=== PATIENT | female | born 1950 | race Caucasian/White ===

== ENCOUNTER → 2017-03-24 | Outpatient (CLI) | payer OTHER ==
[~2017-03-24] MED LIST: ALEN70TA3 PO; CLTP PO; DOCU100C31; LISI20TA55 PO; MULT-513 PO; POTA10CA28 PO; PREMARIN VAG; SIME1CHW17; TAMO20TA9 PO; loratadine PO
[2017-03-24 17:53] LABS: BLOOD UREA NITROGEN 8 mg/dl (7-18); BUN/CREATININE RATIO 9.3 (10-20); CARBON DIOXIDE 30 mmol/L (21-32); CHLORIDE 103 mmol/L (98-107); CREATININE 0.85 mg/dl (0.60-1.20); GLUCOSE 93 mg/dl (70-99); POTASSIUM 4.2 mmol/L (3.5-5.1); SODIUM 139 mmol/L (136-145)
[2017-03-24 18:12] LABS: CALCIUM 9.9 mg/dl (8.5-10.1)
== END | disposition home or self-care (01) ==
LOC: C.LABPVFM 11:41
PROVIDERS: ATTEND Family Medicine
DX: Z00.00 Encounter for general adult medical examination without abnormal findings (principal); I10 Essential (primary) hypertension

== ENCOUNTER → 2017-06-09 | Outpatient (CLI) | payer OTHER ==
[2016-06-09 13:34] VITALS: BP 123/67; PULSE 91
[~2017-06-09] MED LIST changes: +TAMO20TA47 PO; -TAMO20TA9 PO
[2017-06-09 09:04] VITALS: BP 153/95; PULSE 77; TEMP 36.2; O2SAT 99
--- NOTE | 2017-06-09 10:12 | Radiation Oncology Follow-Up ---
Radiation Oncology Follow-Up Date of Visit Jun 09, 2017. 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 She has noted no masses or tenderness and no change of the axilla. She is up-to-date on mammography. She continues on tamoxifen. She denies any problems with hot flashes. She had a recheck mammogram 08/16/2016. There is no mammographic evidence of malignancy. A one-year screening mammogram is recommended. She is described intermittent episodes of nausea and vomiting. These are sudden in onset. She'll have nausea vomiting and abdominal pain. This will resolve and then she is fine for a extended period of time. The last time this occurred she was weak afterward. She did not drink or eat food for an extended period of time. She felt lightheaded afterward. She has a known history of an incisional hernia/umbilical hernia that has been present for a long period of time. She did not have any fever or chills with these episodes. She did not describe any episodes of associated diarrhea. Allergies Coded Allergies: No Known Allergies (Verified , 07/26/13) Home Medications Scheduled Alendronate/Cholecalciferol (Fosamax+D 70MG/5600 Iu), 1 TABLET PO WK Calcium/Vitamin D (Caltrate 600 Plus *), 2 TAB PO DAILY Lisinopril/Hctz (Prinzide 20-25MG), 0.5 TAB PO DAILY Multivitamins/Minerals (Mvi With Minerals), 1 TAB PO DAILY Potassium Chloride (Micro-K Ext Rel), 10 MEQ PO DAILY Tamoxifen (Nolvadex), 20 MG PO DAILY [premarin vag cream], WK Scheduled PRN Docusate Sodium (Docusate Sodium) Simethicone (Gas Relief) [loratadine], 10 MG PO DAILY PRN Review of Systems Gastrointestinal: Symptoms: WNL, Vomiting GI Comments: Vomits about once a month when doing yardwork/increased activity Oral: Symptoms: No Problems Respiratory: Symptoms: WNL Urinary: Symptoms: WNL Skin: Symptoms: No Problems Other Skin Symptoms: " i have a scab and sore on my big toe on left foot " Breast: Right Upper Arm Measurement: 28.9 Right Mid Arm Measurement: 23.4 Right Wrist Measurement: 15.4 Left Upper Arm Measurement: 27.3 Left Mid Arm Measurement: 22.7 Left Wrist Measurement: 15.0 Arm Dominence: Right Patient Cosmetic Evaluation: Good Staff Cosmetic Evalaluation: Good Physical Exam Vital Signs Date Time Temp Pulse Resp B/P (MAP) Pulse Ox O2 Delivery O2 Flow Rate FiO2 06/09/17 09:04 36.2 77 16 153/95 99 Pain: Side: Bilateral Patient Pain Scale: 0 - 10 Initial Pain Intensity: 0.0 Fatigue: None General Appearance: no apparent distress Eyes: normal inspection, EOMI ENT: normal ENT inspection, hearing grossly normal Neck: no adenopathy, thyroid normal Respiratory/Chest: lungs clear, no respiratory distress, no accessory muscle use Breast: Breast examination reveals well-healed incisions of the right breast. There are no masses or tenderness and no axillary adenopathy. She has no skin retractions or nipple changes. Using the Bessemer score cosmesis she has a excellent outcome. The left breast showed no masses or tenderness no axillary adenopathy. Cardiovascular: regular rate, rhythm, no gallop, no murmur Abdomen: non tender, soft, + pertinent finding (she has a long well-healed midline incision. There is a palpable hernia centrally. This is in the area of the umbilicus. This is nontender.) Extremities: no pedal edema Neurologic/Psychiatric: no motor/sensory deficits, alert, normal mood/affect Skin: warm/dry Laboratory Studies Test 03/24/17 11:50 Sodium Level 139 mmol/L (136-145) Potassium Level 4.2 mmol/L (3.5-5.1) Chloride Level 103 mmol/L (98-107) Carbon Dioxide Level 30 mmol/L (21-32) Anion Gap 6.0 mmol/L (3-11) Blood Urea Nitrogen 8 mg/dl (7-18) Creatinine 0.85 mg/dl (0.60-1.20) Estimated GFR () 82.8 Estimated GFR (Non- 71.4 BUN/Creatinine Ratio 9.3 (10-20) Random Glucose 93 mg/dl (70-99) Calcium Level 9.9 mg/dl (8.5-10.1) Hepatitis C Antibody NEG (NEG) Additional Studies Patient: POORNIMA JEROME [facility] Rec: [id number] Address1: [address] [place] [address] Address2: [place] [address] Acct ID: [id number] Date: 1950 Sex: F Ref Phy: Att Phy: Joshua Edward M.D. Tanya Phy: Bong Arredondo M.D. Inter Phy: Leonie Kim MD [facility] Zip: [place] [address] SC: [id number] Report #: [id number] Road Oiler: STEW Diagnosis: ASYMPTOMATIC Service Date: 08/16/16 MNE: [id number] Ordering Dr: Joshua Edward M.D. CC: Joshua Edward M.D. CONF: DICTATED BY: Leonie Kim MD MAMMOGRAPHY REPORT BILATERAL DIGITAL SCREENING MAMMOGRAM 3D/2D WITH CAD: 08/16/2016 CLINICAL HISTORY: Asymptomatic. Personal history of breast cancer. Comparison is made to exams dated: 08/13/2015 mammogram, 06/05/2013 mammogram, mammogram, 08/12/2014 mammogram, 07/26/2013 specimen, and 06/14/2013 ultrasound biopsy - [facility]. FINDINGS: Breast tomosynthesis in addition to full field digital CC and MLO views were obtained. The tissue of both breasts is almost entirely fatty. Current study was also evaluated with a Computer Aided Detection (CAD) system. Linear scar markers overlie the right upper outer middle one third of the breast. There is expected underlying architectural distortion at the site of prior lumpectomy. There are stable intramammary lymph nodes in the left upper outer quadrant. No new suspicious mass, unexpected architectural distortion or new cluster of suspicious microcalcifications are seen bilaterally. IMPRESSION: ACR BI-RADS CATEGORY 2: BENIGN There is no mammographic evidence of malignancy. A 1 year screening mammogram is recommended. The patient will receive written notification of the results. Approximately 10% of breast cancers are not detected with mammography. A negative mammographic report should not delay biopsy if a clinically suggestive mass is present. Leonie Kim M.D. ay/:08/17/2016 21:07:43 Mannequin Maker: Vani PERALTA)(Carolee), [facility] letter sent: Normal 1/2 BI-RADS Code: ACR BI-RADS Category 2: Benign Dictated by: Leonie Kim MD Signed by: Leonie Kim MD Assessment & Plan Plan: Continue regular follow-up with Dr. Arredondo in medical oncology. She has a recheck mammogram scheduled for 08/17/2017. She'll be seeing him 08/16/2017. Continue follow-up with Dr. Main. She continues on the tamoxifen. We discussed the issue of the read current episodes of nausea and vomiting. These may likely be related to her hernia. I've asked her to review this with Dr. Main. The hernia may need to be repaired. There is concern that she is having intermittent strangulation. She is currently asymptomatic. We asked her to return to our office in 1 year. Total Time In Follow-Up I spent 25 minutes speaking to the patient performing examination. I spent 15 minutes reviewing information in completing this note. Copy To Bong Arredondo M.D.; Joshua Edward M.D. 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
== END | disposition home or self-care (01) ==
LOC: C.ONC 08:24
PROVIDERS: ATTEND Physician Assistant Medical
DX: Z08 Encounter for follow-up examination after completed treatment for malignant neoplasm (principal); Z92.3 Personal history of irradiation; Z85.3 Personal history of malignant neoplasm of breast

== ENCOUNTER → 2017-08-17 | Outpatient (CLI) | payer OTHER ==
--- NOTE | 2017-08-18 13:54 | MAMMOGRAPHY REPORT ---
BILATERAL DIGITAL SCREENING MAMMOGRAM TOMOSYNTHESIS WITH CAD: 08/17/2017 CLINICAL HISTORY: Asymptomatic. Personal history of breast cancer. TECHNIQUE: Breast tomosynthesis in addition to standard 2D mammography was performed. Current study was also evaluated with a Computer Aided Detection (CAD) system. COMPARISON: Comparison is made to exams dated: 08/16/2016 mammogram, 08/13/2015 mammogram, 02/14/2015 ma mmogram, 08/12/2014 mammogram, 02/07/2014 mammogram, and 06/07/2013 mammogram - [facility]ter. BREAST COMPOSITION: The tissue of both breasts is almost entirely fatty. FINDINGS: No suspicious masses, calcifications, or areas of architectural distortion are noted in ei ther breast. There has been no significant interval change compared to prior exams. There are stable post surgical changes in the right upper outer quadrant from prior lumpectomy. IMPRESSION: ACR BI-RADS CATEGORY 2: BENIGN There is no mammographic evidence of malignancy. A 1 year screening mammogram is recommended. The pa tient will receive written notification of the results. Approximately 10% of breast cancers are not detected with mammography. A negative mammographic report should not delay biopsy if a clinically suggestive mass is present. Sarah Yee M.D. /:08/17/2017 14:01:55 Retirement Manager: Rebekah PERALTA)(Carolee)(BD), [facility] letter sent: Normal 1/2 BI-RADS Code: ACR BI-RADS Category 2: Benign
== END | disposition home or self-care (01) ==
LOC: C.MAMM 10:24
PROVIDERS: ATTEND Family Medicine
DX: Z12.31 Encounter for screening mammogram for malignant neoplasm of breast (principal)

== ENCOUNTER → 2017-08-25 | Outpatient (CLI) | payer OTHER | END | disposition home or self-care (01) | LOC: C.MAMM 14:00 | PROVIDERS: ATTEND Internal Medicine Hematology | DX: M85.88 Other specified disorders of bone density and structure, other site (principal); M85.852 Other specified disorders of bone density and structure, left thigh; M85.851 Other specified disorders of bone density and structure, right thigh; Z78.0 Asymptomatic menopausal state ==

== ENCOUNTER → 2017-09-21 | Outpatient (CLI) | payer OTHER ==
[~2017-09-21] MED LIST changes: -TAMO20TA47 PO; +TAMO20TA9 PO
[2017-09-21 13:30] LABS: BLOOD UREA NITROGEN 15 mg/dl (7-18); BUN/CREATININE RATIO 17.9 (10-20); CARBON DIOXIDE 27 mmol/L (21-32); CHLORIDE 102 mmol/L (98-107); CREATININE 0.86 mg/dl (0.60-1.20); GLUCOSE 103 mg/dl (70-99); POTASSIUM 3.9 mmol/L (3.5-5.1); SODIUM 137 mmol/L (136-145)
== END | disposition home or self-care (01) ==
LOC: C.LABPVFM 10:03
PROVIDERS: ATTEND Family Medicine
DX: Z00.00 Encounter for general adult medical examination without abnormal findings (principal); I10 Essential (primary) hypertension

== ENCOUNTER → 2018-03-22 | Outpatient (CLI) | payer OTHER ==
[2018-03-22 13:01] LABS: ALBUMIN 3.8 gm/dl (3.4-5.0); ALT/SGPT 25 U/L (12-78); AST/SGOT 24 U/L (15-37); BLOOD UREA NITROGEN 15 mg/dl (7-18); CALCIUM 9.3 mg/dl (8.5-10.1); CARBON DIOXIDE 27 mmol/L (21-32); CHOLESTEROL 161 mg/dl (0-200); CREATININE 0.85 mg/dl (0.60-1.20); GLUCOSE 84 mg/dl (70-99); POTASSIUM 3.5 mmol/L (3.5-5.1); SODIUM 137 mmol/L (136-145)
[2018-03-22 13:04] LABS: ALKALINE PHOSPHATASE 41 U/L (45-117); LDL CHOLESTEROL CALCULATED 58 mg/dl; TOTAL PROTEIN 7.5 gm/dl (6.4-8.2)
== END | disposition home or self-care (01) ==
LOC: C.LABPVFM 10:56
PROVIDERS: ATTEND Family Medicine
DX: E87.6 Hypokalemia (principal); I10 Essential (primary) hypertension

== ENCOUNTER → 2018-06-07 | Outpatient (CLI) | payer OTHER ==
[~2018-06-07] MED LIST changes: +CALC600T9
[2018-06-07 13:53] VITALS: BP 144/81; PULSE 105; TEMP 36.6; O2SAT 94
--- NOTE | 2018-06-07 14:38 | Radiation Oncology Follow-Up ---
Radiation Oncology Follow-Up Date of Visit Jun 07, 2018. 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 She denies any changes to her breast. She is noted no masses or tenderness and no change of the axilla. She has had no swelling of her arm. She is up-to-date on mammography. She continues on tamoxifen. She denies side effects. She is followed in medical oncology and had a DEXA scan. She states that she continues on medications for osteoporosis. During the winter she did have some issues with back pain. This occurred after shoveling snow. This is now resolved. Allergies Coded Allergies: No Known Allergies (Verified , 07/26/13) Home Medications Scheduled Alendronate/Cholecalciferol (Fosamax+D 70MG/5600 Iu), 1 TABLET PO WK Calcium/Vitamin D (Caltrate 600 Plus *), 2 TAB PO DAILY Lisinopril/Hctz (Prinzide 20-25MG), 0.5 TAB PO DAILY Multivitamins/Minerals (Mvi With Minerals), 1 TAB PO DAILY Potassium Chloride (Micro-K Ext Rel), 10 MEQ PO DAILY Tamoxifen (Nolvadex), 20 MG PO DAILY [premarin vag cream], WK Scheduled PRN Docusate Sodium (Docusate Sodium) Simethicone (Gas Relief) [loratadine], 10 MG PO DAILY PRN Miscellaneous Medications Calcium Carbonate-Vitamin D (Calcium + D) Review of Systems Gastrointestinal: Symptoms: WNL GI Comments: Vomits about once a month when doing yardwork/increased activity Oral: Symptoms: No Problems Respiratory: Symptoms: WNL Urinary: Symptoms: WNL Skin: Symptoms: No Problems Other Skin Symptoms: " i have a scab and sore on my big toe on left foot " Breast: Right Upper Arm Measurement: 27.0 Right Mid Arm Measurement: 23.0 Right Wrist Measurement: 15.0 Left Upper Arm Measurement: 26.0 Left Mid Arm Measurement: 21.5 Left Wrist Measurement: 14.5 Arm Dominence: Right Patient Cosmetic Evaluation: Good Staff Cosmetic Evalaluation: Good Physical Exam Vital Signs Date Time Temp Pulse Resp B/P (MAP) Pulse Ox O2 Delivery O2 Flow Rate FiO2 06/07/18 13:53 36.6 105 20 144/81 94 Fatigue: None General Appearance: no apparent distress Eyes: normal inspection, EOMI ENT: normal ENT inspection, hearing grossly normal Neck: no adenopathy, thyroid normal Respiratory/Chest: lungs clear, no respiratory distress, no accessory muscle use Breast: Breast examination reveals well-healed incisions of the right breast. There are no masses or tenderness and no axillary adenopathy. She has no skin retractions or nipple changes. There is no telangiectasia or edema. Using the Chester score of cosmesis she has an excellent outcome. The left breast showed no masses or tenderness and no axillary adenopathy. Cardiovascular: regular rate, rhythm, no gallop, no murmur Abdomen: + hernia (Umbilical hernia) Extremities: no pedal edema Neurologic/Psychiatric: no motor/sensory deficits, alert, normal mood/affect Skin: warm/dry Pain Management Patient Reports Pain: No Side: Bilateral Pain Location: None Patient Preferred Pain Scale: 0 - 10 Initial Pain Intensity: 0.0 Pain Management Plan She denies pain therefore requires no pain management. Laboratory Laboratory Results: not applicable Pathology Pathology Results: not applicable Imaging Imaging Studies: were reviewed, and pertinent findings noted below Imaging Comments Patient: POORNIMA JEROME [facility] Rec: [id number] Address1: [address] [place] [address] Address2: [place] [address] Acct ID: [id number] Date: 1950 Sex: F Ref Phy: Bong Arredondo M.D. Att Phy: Joshua Edward M.D. Tanya Phy: Bong Arredondo M.D. Inter Phy: Sarah Yee MD [facility] Zip: [place] [address] SC: [id number] Report #: [id number] Telephone Order Supervisor: THOR Diagnosis: ASYMPTOMATIC Service Date: 08/17/17 MNE: MAMM1 Ordering Dr: Joshua Edward M.D. CC: Joshua Edward M.D. CONF: DICTATED BY: Sarah Yee MD MAMMOGRAPHY REPORT BILATERAL DIGITAL SCREENING MAMMOGRAM TOMOSYNTHESIS WITH CAD: 08/17/2017 CLINICAL HISTORY: Asymptomatic. Personal history of breast cancer. TECHNIQUE: Breast tomosynthesis in addition to standard 2D mammography was performed. Current study was also evaluated with a Computer Aided Detection (CAD ) system. COMPARISON: Comparison is made to exams dated: 08/16/2016 mammogram, 08/13/2015 mammogram, 02/14/2015 mammogram, 08/12/2014 mammogram, 02/07/2014 mammogram, and mammogram - [facility]. BREAST COMPOSITION: The tissue of both breasts is almost entirely fatty. FINDINGS: No suspicious masses, calcifications, or areas of architectural distortion are noted in either breast. There has been no significant interval change compared to prior exams. There are stable post surgical changes in the right upper outer quadrant from prior lumpectomy. IMPRESSION: ACR BI-RADS CATEGORY 2: BENIGN There is no mammographic evidence of malignancy. A 1 year screening mammogram is recommended. The patient will receive written notification of the results. Approximately 10% of breast cancers are not detected with mammography. A negative mammographic report should not delay biopsy if a clinically suggestive mass is present. Sarah Yee M.D. ah/:08/17/2017 14:01:55 Supervisor Micro[employer] Duplicating Unit: Rebekah WAGNER(Susy)(Carolee)(BD), [facility] letter sent: Normal 1/2 BI-RADS Code: ACR BI-RADS Category 2: Benign Dictated by: Sarah Yee MD Signed by: Sarah Yee MD Assessment & Plan Plan: Continue with annual mammography. She is scheduled for a mammogram in August 18, 2018. She will be seeing Dr. Arredondo in medical oncology on August. She continues on medication for osteoporosis. She continues on tamoxifen. A follow-up appointment with our office was not given. She may call if she has questions or concerns. We will continue follow-up breast examination through her primary care provider. Total Time In Follow-Up I spent 20 minutes speaking to the patient in performing examination. I spent 15 minutes reviewing information and completing this note. Copy To Nathalia Anderson M.D.; Bong Arredondo M.D. 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
== END | disposition home or self-care (01) ==
LOC: C.ONC 13:17
PROVIDERS: ATTEND Physician Assistant Medical
DX: Z08 Encounter for follow-up examination after completed treatment for malignant neoplasm (principal); Z92.3 Personal history of irradiation; Z85.3 Personal history of malignant neoplasm of breast

== ENCOUNTER 2018-06-28 14:56 | Emergency (ER) | payer OTHER ==
[~2018-06-28] VITALS: Ht 167.6 cm; Wt 64.4 kg
[2018-06-28 14:58] VITALS: TEMP 36.7; Ht 167.6 cm; Wt 64.4 kg
[2018-06-28] MEDS ORDERED: PRED20TA PO (15:20)
[2018-06-28 16:02] VITALS: BP 151/83; PULSE 77; O2SAT 99
--- NOTE | 2018-06-28 22:03 | EMERGENCY ROOM VISIT NOTE ---
History Report prepared by [employer]: Dunia Vazquez Under the Supervision of: Dr. Salazar Flores M.D. First contact with patient: 15:07 Chief Complaint: EYE ASSESSMENT Stated Complaint: POISON STEVE, SWOLLEN EYES History of Present Illness The patient is a 68 year old female who presents to the Emergency Room with complaints of persistent bilateral eye swelling since yesterday morning. She admits to being outside 2 days ago picking apples and pulling weeds, and may have been exposed to Poison Steve, which she has experienced before. Yesterday morning, her bilateral eyes became swollen, but she denies any vision changes. She denies any sore throat, throat swelling or difficulty breathing. She called her PCP, but they were unable to get her in, so she came to the ED. She also complains of an itchy rash along her bilateral arms. Caladryl lotions has provided no relief. Source of History: patient Onset: yesterday morning Position: head Quality: other (swelling) Timing: other (persistent) Associated Symptoms: + rash (bilateral arms), No sorethroat, No SOB Review of Systems See HPI for pertinent positives & negatives. A total of 6 systems reviewed and were otherwise negative. 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 (2) Hypertension Nos (3) Intestinal Obstruct Nec (4) Mal Terrence Breast Up-Outer (5) Osteoporosis Nos (6) Pneumonia, Organism Nos (7) Uterine Leiomyoma Nos Social History Smoking Status: Never Smoker Alcohol Use: none Drug Use: none Marital Status: single Housing Status: lives alone Occupation Status: unemployed Current/Historical Medications Scheduled Alendronate/Cholecalciferol (Fosamax+D 70MG/5600 Iu), 1 TABLET PO WK Calcium/Vitamin D (Caltrate 600 Plus *), 2 TAB PO DAILY Lisinopril/Hctz (Prinzide 20-25MG), 0.5 TAB PO DAILY Multivitamins/Minerals (Mvi With Minerals), 1 TAB PO DAILY Potassium Chloride (Micro-K Ext Rel), 10 MEQ PO DAILY Prednisone (Prednisone), 0 PO DAILY Tamoxifen (Nolvadex), 20 MG PO DAILY [premarin vag cream], WK Scheduled PRN Docusate Sodium (Docusate Sodium) Simethicone (Gas Relief) [loratadine], 10 MG PO DAILY PRN Miscellaneous Medications Calcium Carbonate-Vitamin D (Calcium + D) Allergies Coded Allergies: No Known Allergies (Verified , 07/26/13) Physical Exam Vital Signs Date Time Temp Pulse Resp B/P (MAP) Pulse Ox O2 Delivery O2 Flow Rate FiO2 06/28/18 16:02 77 16 151/83 99 06/28/18 14:58 36.7 96 16 176/82 99 Room Air Physical Exam Constitutional: Vital signs reviewed. Eyes: Pupils are equal round reactive to light. Conjunctiva are noninjected. Swelling and erythema to the top half of the face, no tenderness. ENT: Pharynx is clear without erythema or exudate. Mucous membranes are moist. Neck supple without meningeal signs. Respiratory: Clear to auscultation bilaterally. Breath sounds are equal bilaterally. No stridor or wheezing. Cardiovascular: Regular rate and rhythm. No rubs or gallops. GI: Soft, nondistended and nontender. Bowel sounds are present. Musculoskeletal: No peripheral edema. No lower extremity tenderness. Integumentary: No cyanosis. Scattered lesions to the forearms and left flank consistent with contact dermatitis from poison steve. Neurological: The patient is awake and alert. No focal deficits. Psychiatric: Normal affect. Medical Decision & Procedures Medications Administered Medications (Trade) Dose Ordered Sig/Letha Route Start Time Stop Time Status Last Admin Dose Admin Prednisone (PredniSONE TAB) 60 mg NOW STAT PO 06/28/18 15:16 06/28/18 15:18 DC 06/28/18 15:49 60 MG Diphenhydramine HCl (Benadryl Cap) 50 mg NOW ONCE PO 06/28/18 15:30 06/28/18 15:31 DC 06/28/18 15:49 50 MG ED Course 1508: The patient was evaluated in room C3. A complete history and physical exam was performed. 1516: Prednisone 60 mg PO. 1520: I reevaluated the patient. She is ready to go home. I discussed her discharge instructions and she verbalized complete understanding and agreement. 1530: Benadryl 50 mg PO. Medical Decision This is a 68-year-old female presents with facial swelling. Differential diagnosis includes contact dermatitis, poison steve, secondary infection, angioedema. I did perform a limited focused review of portions of the patient' s old chart on the electronic medical record. The patient has had no recent pertinent visits to this hospital. I did evaluate the patient as noted above. Patient has a history of sensitivity to poison steve. She does appear to have poison steve dermatitis on her arms, trunk and face. She does not appear to have any eye involvement. I do not see signs of any secondary infection and see no indication for antibiotics currently. She was advised to watch for signs of infection. She was given a dose of prednisone here as well as Benadryl. She was discharged with a prescription for prednisone. She was advised to follow-up with her doctor and given return instructions as outlined below. Medication Reconcilliation Current Medication List: was personally reviewed by me Blood Pressure Screening Patient's blood pressure: Elevated blood pressure Blood pressure disposition: Referred to PCP Impression Primary Impression: Poison steve dermatitis Scribe Attestation The scribe's documentation has been prepared under my direct and personally reviewed by me in its entirety. I confirm that the note above accurately reflects all work, treatment, procedures, and medical decision making performed by me. Departure Information Dispostion Home / Self-Care Prescriptions Prednisone (Prednisone) 20 Mg Tab 0 PO DAILY, #18 TAB 3 DAILY FOR 3 DAYS, THEN 2 DAILY FOR 3 DAYS, THEN 1 DAILY FOR 3 DAYS. Prov: Salazar Flores M.D. 06/28/18 Referrals Nathalia Anderson M.D. (PCP) Patient Instructions ED Dermatitis Poison Steve, My [facility] Additional Instructions You have been examined and treated today on an emergency basis only. This is not a substitute for, or an effort to provide, complete comprehensive medical care. It is impossible to recognize and treat all injuries or illnesses in a single emergency department visit. It is therefore important that you follow up closely with your physician. Call as soon as possible for an appointment. Return for worsening symptoms or if you develop fever, pain in your eyes, headache, swelling to your tongue, difficulty breathing or any other concerning symptoms. Clean your face with soap and water. Avoid putting any lotion or creams on your face. Watch for any signs of infection such as increase redness, pain or warmth. Start your prescription tomorrow.
== END 2018-06-28 16:03 | disposition home or self-care (01) ==
LOC: C.EDB 14:57 → C.EDC 16:03
DX: L23.7 Allergic contact dermatitis due to plants, except food (principal); I10 Essential (primary) hypertension; Z79.899 Other long term (current) drug therapy

== ENCOUNTER 2020-04-20 07:19 | Inpatient (IN) ==
[2020-04-20] MEDS ORDERED: SODIUM CHLORIDE 0.9% 500 ML IV ONE (07:29)
[2020-04-20] MEDS ORDERED: IOVERSOL 100ml IV PRN (07:37)
[2020-04-20 08:03] LABS: Base Excess VBG 5.3 mEq/L; Oxygen Saturation VBG 91.4 %; pH VBG 7.49 (7.36-7.41)
[2020-04-20 08:06] LABS: Hematocrit (blood only) 41.5 % (37-47); Hemoglobin 13.9 g/dL (12.0-16.0); Mean Corpuscular Hemoglobin 29.9 pg (25-34); Mean Corpuscular Hgb Conc 33.5 g/dL (32-36); Mean Corpuscular Volume 89.2 fL (80-100); Mean Platelet Volume 8.5 fL (7.4-10.4); Platelet Count 487 K/uL (130-400); RDW Coefficient of Variation 14.5 % (11.5-14.5); RDW Standard Deviation 47.1 fL (36.4-46.3); Red Blood Count 4.65 M/uL (4.2-5.4); White Blood Count 22.19 K/uL (4.8-10.8)
--- NOTE | 2020-04-20 08:06 | Emergency Department Note ---
Impression & Plan Glioblastoma, Acute intra-cranial hemorrhage, Cerebral edema, Pneumonia, Hypoxia, Seizure ED Provider Note NAME: POORNIMA JEROME AGE: 69 SEX: F : 1950 ARRIVES VIA: Ambulance INFORMANT: The prehospital personnel and the patient's usp documentation, ED PROVIDER(S): Oli Crawford DO CHIEF COMPLAINT: Altered mental status and fever HPI: The patient is a 69-year-old female who presented to the emergency department from her usp for an evaluation of altered mental status and fever. The patient was admitted to [facility] recently and is still on their COVID unit for rule out. The patient presented to the emergency department today with low-grade fever difficulty breathing and altered mental status. The patient has a history of glioblastoma and is currently a DNR. The patient had an episode of emesis prior to arrival. The patient is unable to answer any questions at this time so HPI and review of systems were very limited. ROS: See above HPI for pertinent positives & negatives. Review of systems unable to obtain due to patient's alteration of mental status at this time. PAST MEDICAL HISTORY: See Below PAST SURGICAL HISTORY: See Below FAMILY HISTORY: See Below SOCIAL HISTORY: See Below HOME MEDICATIONS: See Below ALLERGIES: See Below VITALS: See Below PHYSICAL EXAMINATION: GENERAL: The patient is listless and responds only to painful stimuli. She does not answer questions. EYES: Patient has a left gaze preference. Right pupil was dilated and reactive to light. Left pupil is reactive to light and midsize. EARS, NOSE, MOUTH AND THROAT: The nose is without any evidence of any deformity. Mucous membranes are dry. NECK: The neck is nontender and supple. RESPIRATORY: Shallow respirations were noted. There were diminished breath sounds in the right lung field. CARDIOVASCULAR: Tachycardic rate with regular rhythm was noted. There was no definite murmur. GASTROINTESTINAL: The abdomen is mildly distended but soft. There is no specific guarding rigidity. MUSCULOSKELETAL/EXTREMITIES: There is no evidence of gross deformity full range of motion is noted in the hips and shoulders. SKIN: Skin was warm and dry. Pulses were symmetric in both feet. NEUROLOGIC: Patient does not follow any commands. There is diffuse muscle rigidity noted. Patient does not answer questions so I am unable to assess orientation at this time. MEDICAL DECISION MAKING: The patient is a 69-year-old female who presented to the emergency department for an evaluation of altered mental status. The patient was unable to answer questions while she was in the emergency department. The patient was found to have signs of pneumonia. She had a low-grade fever. She was treated with IV antibiotics. She was also treated with IV Keppra and IV Decadron. She was also treated with IV labetalol for elevated blood pressure with an intracranial hemorrhage. I discussed the patient's condition with the power of real estate attorney. It does appear that the patient would not wish to be a full code and had a living well with advanced directives and would not want heroic measures. I discussed the [facility]'s [facility] Likely she will require comfort measures. They will evaluate the patient in the emergency department for further management and disposition. Triage Nursing notes reviewed. Prior medical records reviewed Vital Signs: reviewed and remarkable for elevated blood pressure and low-grade fever. Differential diagnosis: Infection, hypoglycemia, electrolyte abnormalities, overdose, toxicologic, cardiac sources, intracerebral event, neurologic, trauma, as well as other pathologies. ER treatment provided: See below Diagnostics interpreted by me: ECG: EKG was obtained in the emergency department. My interpretation is sinus tachycardia at 106 bpm. There is no ectopy. LVH was noted by voltage criteria. There is no specific change compared to a tracing from February 15, 2020. Cardiac Monitoring: An order was placed for continuous cardiac monitoring. The monitor shows a rate of 89 with sinus rhythm. Laboratory studies: As stated above and show below. Imaging studies: See below Consultation(s): 1030: I discussed this case with the patient's power of real estate attorney, Salma Schwab son [phone]. He states that the patient as of 3 weeks ago was awake alert and able to talk without any difficulty. He also states that the patient has advanced directives and would not want any heroic measures including CPR, intubation, neurosurgery, or any invasive procedures. 1050: I discussed this case with Dr. Burns who is [facility]. They will evaluate the patient in the emergency department for further management and disposition. ED COURSE: Procedures: none Critical Care: I have personally spent greater than 60 minutes of critical care time in the direct management of this patient. This includes bedside care, interpretation of diagnostic studies, and testing, discussion with consultants, patient, and family members, and other required patient management activities. This 60 minutes is in excess of all separately billable procedures. 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) Other specified intestinal obstruction (Inactive) Pneumonia, organism unspecified (Inactive) Surgical History History of appendectomy History of cholecystectomy History of total abdominal hysterectomy and bilateral salpingo-oophorectomy History of vaginal surgery Colpopexy abdominal approach Family History Father Congestive heart failure Mother Ovarian cancer Denies family history of Prostate cancer Myocardial infarction Breast cancer Colorectal cancer Social History Preferred Language: Romanian marital status: Single Feels Safe at Home: Yes Smoking Status: Never smoker Hx Alcohol Use: No Physical Activity Frequency: Daily Allergies Allergies Allergy/AdvReac Type Severity Reaction Status Date / Time No Known Allergies Allergy Unknown Verified 04/20/20 08:11 Home Meds Home Medications Medication Instructions Recorded Confirmed ondansetron HCl 8 mg tablet 8 mg PO Q8H PRN 03/20/20 04/20/20 prochlorperazine maleate 10 mg 10 mg PO Q6H PRN 03/20/20 04/20/20 tablet sulfamethoxazole 800 1 tab PO 3XWK 03/20/20 04/20/20 mg-trimethoprim 160 mg tablet alendronate 70 mg PO WK 03/22/20 04/20/20 calcium carbonate-vitamin D3 1 cap PO QAM 03/22/20 04/20/20 [Calcium 600 + D(3)] acetaminophen 650 mg PO Q4H PRN 04/20/20 04/20/20 cholecalciferol (vitamin D3) 25 mcg PO QAM 04/20/20 04/20/20 docusate sodium 100 mg PO BID 04/20/20 04/20/20 lisinopril 10 mg PO QAM 04/20/20 04/20/20 sertraline 50 mg PO QAM 04/20/20 04/20/20 Previous Rx's Medication Instructions Recorded loratadine 10 mg capsule 10 mg PO DAILY PRN #30 cap 01/28/20 multivitamin with minerals 1 cap PO DAILY #30 cap 01/28/20 bismuth subsalicylate 262 mg/15 mL 524 mg PO Q4H PRN #946 ml 03/10/20 oral suspension melatonin 3 mg tablet 3 mg PO HS #30 tab 03/10/20 omeprazole 20 mg capsule,delayed 20 mg PO DAILY #30 cap 03/10/20 release hydrocodone 5 mg-acetaminophen 325 1 tab PO Q6H PRN #30 tab 03/19/20 mg tablet Results & Data (ED) Vital Signs Vital Signs - 24 hr 04/20/20 07:19 04/20/20 07:24 04/20/20 07:26 Temperature 37.8 C H Temperature Source Oral Pulse Rate 101 H 105 H 90 Pulse Rate [Left Finger] Pulse Rate from SpO2 Sensor 91 H Respiratory Rate 24 23 19 Respiratory Effort / Characteristics Spontaneous Short of Breath Respiratory Pattern Regular Blood Pressure 189/87 H 189/87 H Blood Pressure [Left Arm] Blood Pressure Mean 121 116 Blood Pressure Mean [Left Arm] Blood Pressure Position Lying Pulse Oximetry 92 89 L Oxygen Delivery Method Nasal Cannula Nasal Cannula Oxygen Flow Rate 2 2 Sepsis Recent Fever Within 48 Hours Yes Sepsis New/Unexplained Change in Mental Status Yes Sepsis Action Taken by Nursing Physician Notified 04/20/20 07:30 04/20/20 07:45 04/20/20 07:51 Temperature Temperature Source Pulse Rate 81 96 H 111 H Pulse Rate [Left Finger] Pulse Rate from SpO2 Sensor 89 96 H 104 H Respiratory Rate 23 Respiratory Effort / Characteristics Respiratory Pattern Blood Pressure 177/97 H Blood Pressure [Left Arm] Blood Pressure Mean 108 Blood Pressure Mean [Left Arm] Blood Pressure Position Pulse Oximetry 89 L 93 95 Oxygen Delivery Method Nasal Cannula Nasal Cannula Nasal Cannula Oxygen Flow Rate 2 2 2 Sepsis Recent Fever Within 48 Hours Sepsis New/Unexplained Change in Mental Status Sepsis Action Taken by Nursing 04/20/20 08:00 04/20/20 08:01 04/20/20 08:15 Temperature Temperature Source Pulse Rate 78 71 73 Pulse Rate [Left Finger] Pulse Rate from SpO2 Sensor 77 78 83 Respiratory Rate Respiratory Effort / Characteristics Respiratory Pattern Blood Pressure 189/96 H Blood Pressure [Left Arm] Blood Pressure Mean 120 Blood Pressure Mean [Left Arm] Blood Pressure Position Pulse Oximetry 93 93 94 Oxygen Delivery Method Nasal Cannula Nasal Cannula Nasal Cannula Oxygen Flow Rate 2 2 2 Sepsis Recent Fever Within 48 Hours Sepsis New/Unexplained Change in Mental Status Sepsis Action Taken by Nursing 04/20/20 09:09 04/20/20 10:39 Temperature Temperature Source Pulse Rate 99 H Pulse Rate [Left Finger] 106 H Pulse Rate from SpO2 Sensor Respiratory Rate 12 16 Respiratory Effort / Characteristics Respiratory Pattern Blood Pressure 196/98 H Blood Pressure [Left Arm] 195/114 H Blood Pressure Mean 130 Blood Pressure Mean [Left Arm] 141 Blood Pressure Position Pulse Oximetry 93 93 Oxygen Delivery Method Nasal Cannula Oxygen Flow Rate 2 Sepsis Recent Fever Within 48 Hours Sepsis New/Unexplained Change in Mental Status Sepsis Action Taken by Assisted Medications Current Medication List: was personally reviewed by me Laboratory Data Attestation: I reviewed the patient's lab results. Result diagrams: 04/20/20 Unknown 04/20/20 Unknown Lab Results 04/20/20 04/20/20 04/20/20 Range/Units 07:25 07:35 07:52 WBC (4.8-10.8) K/uL RBC (4.2-5.4) M/uL Hgb (12.0-16.0) g/dL Hct (37-47) % MCV (80-100) fL MCH (25-34) pg MCHC (32-36) g/dL RDW Std Deviation (36.4-46.3) fL RDW Coeff of Nicky (11.5-14.5) % Plt Count (130-400) K/uL MPV (7.4-10.4) fL Immature Gran % (Auto) % Neut % (Auto) % Lymph % (Auto) % [place] % (Auto) % Eos % (Auto) % Baso % (Auto) % Immature Gran # (Auto) (0.00-0.02) K/uL Neut # (Auto) (1.4-6.5) K/uL Lymph # (Auto) (1.2-3.4) K/uL [place] # (Auto) (0.11-0.59) K/uL Eos # (Auto) (0-0.5) K/uL Baso # (Auto) (0-0.2) K/uL PT (9.0-12.0) Seconds INR (0.9-1.1) APTT (21.0-31.0) Seconds PTT Ratio VBG pH 7.49 H (7.36-7.41) VBG pCO2 38 (38-50) mmHg VBG pO2 57 mmHg VBG HCO3 29 mmol/L VBG O2 Saturation 91.4 % VBG Base Excess 5.3 mEq/L Barometric Pressure 732.7 mm/Hg Sodium (136-145) mmol/L Potassium (3.5-5.1) mmol/L Chloride (98-107) mmol/L Carbon Dioxide (21-32) mmol/L Anion Gap (3-11) BUN (7-18) mg/dl Creatinine (0.6-1.2) mg/dl Est Cr Clr Drug Dosing Est GFR ( Amer) Est GFR (Non-Af Amer) BUN/Creatinine Ratio (10-20) Glucose (70-99) mg/dl Lactate (0.4-2.0) mmol/L Calcium (8.5-10.1) mg/dl Magnesium (1.8-2.4) mg/dl Total Bilirubin (0.2-1) mg/dl AST (15-37) U/L ALT (12-78) U/L Alkaline Phosphatase (45-117) U/L Troponin I (0-0.045) ng/ml Total Protein (6.4-8.2) gm/dl Albumin (3.4-5.0) gm/dl Globulin (2.5-4.0) gm/dl Albumin/Globulin Ratio (0.9-2) Procalcitonin (0-0.5) ng/ml Urine Color Yellow Urine Appearance Clear (Clear) Urine pH 7.0 (4.5-7.5) Ur Specific [place] 1.011 (1.000-1.030) Urine Protein Negative (Negative) Urine Glucose (UA) Negative (Negative) Urine Ketones Negative (Negative) Urine Blood Negative (Negative) Urine Nitrite Negative (Negative) Urine Bilirubin Negative (Negative) Urine Urobilinogen Negative (Negative) Ur Leukocyte Esterase Trace H (Negative) Urine WBC (Auto) 5-10 H (0-5) /hpf Urine RBC (Auto) 0-4 (0-4) /hpf U Hyaline Cast (Auto) 1-5 (0-5) /lpf U Epithel Cells (Auto) 5-10 H (0-5) /lpf Urine Bacteria (Auto) 1+ H (Negative) COVID-19 PCR NEGATIVE (Negative) 04/20/20 04/20/20 04/20/20 Range/Units 08:00 Unknown Unknown WBC 22.19 H (4.8-10.8) K/uL RBC 4.65 (4.2-5.4) M/uL Hgb 13.9 (12.0-16.0) g/dL Hct 41.5 (37-47) % MCV 89.2 (80-100) fL MCH 29.9 (25-34) pg MCHC 33.5 (32-36) g/dL RDW Std Deviation 47.1 H (36.4-46.3) fL RDW Coeff of Nicky 14.5 (11.5-14.5) % Plt Count 487 H (130-400) K/uL MPV 8.5 (7.4-10.4) fL Immature Gran % (Auto) 0.3 % Neut % (Auto) 93.2 % Lymph % (Auto) 4.0 % [place] % (Auto) 2.4 % Eos % (Auto) 0.0 % Baso % (Auto) 0.1 % Immature Gran # (Auto) 0.07 H (0.00-0.02) K/uL Neut # (Auto) 20.67 H (1.4-6.5) K/uL Lymph # (Auto) 0.89 L (1.2-3.4) K/uL [place] # (Auto) 0.54 (0.11-0.59) K/uL Eos # (Auto) 0.00 (0-0.5) K/uL Baso # (Auto) 0.02 (0-0.2) K/uL PT 10.8 (9.0-12.0) Seconds INR 1.0 (0.9-1.1) APTT 34.0 H (21.0-31.0) Seconds PTT Ratio 1.2 VBG pH (7.36-7.41) VBG pCO2 (38-50) mmHg VBG pO2 mmHg VBG HCO3 mmol/L VBG O2 Saturation % VBG Base Excess mEq/L Barometric Pressure mm/Hg Sodium (136-145) mmol/L Potassium (3.5-5.1) mmol/L Chloride (98-107) mmol/L Carbon Dioxide (21-32) mmol/L Anion Gap (3-11) BUN (7-18) mg/dl Creatinine (0.6-1.2) mg/dl Est Cr Clr Drug Dosing Est GFR ( Amer) Est GFR (Non-Af Amer) BUN/Creatinine Ratio (10-20) Glucose (70-99) mg/dl Lactate 2.6 H* (0.4-2.0) mmol/L Calcium (8.5-10.1) mg/dl Magnesium (1.8-2.4) mg/dl Total Bilirubin (0.2-1) mg/dl AST (15-37) U/L ALT (12-78) U/L Alkaline Phosphatase (45-117) U/L Troponin I (0-0.045) ng/ml Total Protein (6.4-8.2) gm/dl Albumin (3.4-5.0) gm/dl Globulin (2.5-4.0) gm/dl Albumin/Globulin Ratio (0.9-2) Procalcitonin (0-0.5) ng/ml Urine Color Urine Appearance (Clear) Urine pH (4.5-7.5) Ur Specific [place] (1.000-1.030) Urine Protein (Negative) Urine Glucose (UA) (Negative) Urine Ketones (Negative) Urine Blood (Negative) Urine Nitrite (Negative) Urine Bilirubin (Negative) Urine Urobilinogen (Negative) Ur Leukocyte Esterase (Negative) Urine WBC (Auto) (0-5) /hpf Urine RBC (Auto) (0-4) /hpf U Hyaline Cast (Auto) (0-5) /lpf U Epithel Cells (Auto) (0-5) /lpf Urine Bacteria (Auto) (Negative) COVID-19 PCR (Negative) 04/20/20 04/20/20 Range/Units Unknown Unknown WBC (4.8-10.8) K/uL RBC (4.2-5.4) M/uL Hgb (12.0-16.0) g/dL Hct (37-47) % MCV (80-100) fL MCH (25-34) pg MCHC (32-36) g/dL RDW Std Deviation (36.4-46.3) fL RDW Coeff of Nicky (11.5-14.5) % Plt Count (130-400) K/uL MPV (7.4-10.4) fL Immature Gran % (Auto) % Neut % (Auto) % Lymph % (Auto) % [place] % (Auto) % Eos % (Auto) % Baso % (Auto) % Immature Gran # (Auto) (0.00-0.02) K/uL Neut # (Auto) (1.4-6.5) K/uL Lymph # (Auto) (1.2-3.4) K/uL [place] # (Auto) (0.11-0.59) K/uL Eos # (Auto) (0-0.5) K/uL Baso # (Auto) (0-0.2) K/uL PT (9.0-12.0) Seconds INR (0.9-1.1) APTT (21.0-31.0) Seconds PTT Ratio VBG pH (7.36-7.41) VBG pCO2 (38-50) mmHg VBG pO2 mmHg VBG HCO3 mmol/L VBG O2 Saturation % VBG Base Excess mEq/L Barometric Pressure mm/Hg Sodium 130 L (136-145) mmol/L Potassium 3.7 (3.5-5.1) mmol/L Chloride 92 L (98-107) mmol/L Carbon Dioxide 29 (21-32) mmol/L Anion Gap 9.0 (3-11) BUN 14 (7-18) mg/dl Creatinine 0.59 L (0.6-1.2) mg/dl Est Cr Clr Drug Dosing Not Reportable Est GFR ( Amer) 108.4 Est GFR (Non-Af Amer) 93.5 BUN/Creatinine Ratio 23.1 H (10-20) Glucose 160 H (70-99) mg/dl Lactate (0.4-2.0) mmol/L Calcium 9.3 (8.5-10.1) mg/dl Magnesium 2.1 (1.8-2.4) mg/dl Total Bilirubin 0.5 (0.2-1) mg/dl AST 15 (15-37) U/L ALT 21 (12-78) U/L Alkaline Phosphatase 114 (45-117) U/L Troponin I < 0.015 (0-0.045) ng/ml Total Protein 7.3 (6.4-8.2) gm/dl Albumin 3.1 L (3.4-5.0) gm/dl Globulin 4.2 H (2.5-4.0) gm/dl Albumin/Globulin Ratio 0.7 L (0.9-2) Procalcitonin 0.07 (0-0.5) ng/ml Urine Color Urine Appearance (Clear) Urine pH (4.5-7.5) Ur Specific [place] (1.000-1.030) Urine Protein (Negative) Urine Glucose (UA) (Negative) Urine Ketones (Negative) Urine Blood (Negative) Urine Nitrite (Negative) Urine Bilirubin (Negative) Urine Urobilinogen (Negative) Ur Leukocyte Esterase (Negative) Urine WBC (Auto) (0-5) /hpf Urine RBC (Auto) (0-4) /hpf U Hyaline Cast (Auto) (0-5) /lpf U Epithel Cells (Auto) (0-5) /lpf Urine Bacteria (Auto) (Negative) COVID-19 PCR (Negative) Administered Medications Ioversol (Optiray 320 100ml) 92 ml IV ONCE PRN PRN Reason: Interaction Checking Stop: 04/24/20 07:36 Last Admin: 04/20/20 07:37 Dose: 92 ml Documented by: [id number] Discontinued Medications Sodium Chloride (Nss) 500 mls @ 999 mls/hr IV .Q31M ONE Stop: 04/20/20 07:59 Last Infusion: 04/20/20 08:54 Dose: 0 mls/hr Documented by: [id number] Admin: 04/20/20 07:49 Dose: 999 mls/hr Documented by: [id number] Imaging Data Radiologist's Impression: CT head/brain wo con CT DOSE: 638.56 mGycm HISTORY: Mental status change altered TECHNIQUE: Multiaxial CT images of the head were performed without the use of intravenous contrast. A dose lowering technique was utilized adhering to the principles of ALARA. Comparison: None. Findings: The paranasal sinuses and mastoid air cells are clear. Interval development of a diffuse parenchymal infiltrate right frontal parietal lobe. Progressive vasogenic edema compared to the prior study. Considerable midline shift to the left with complete effacement of the right lateral ventricular system. Midline shift to the left is estimated at 1 cm. Partial effacement of the suprasellar cisterns. Impression: 1. Large geographic hemorrhage and/or parenchymal bleed right cerebral hemisphere, superimposed upon pre-existing vasogenic edema. 2. The vasogenic edema is also progressive with a midline shift to the left of 1 cm. 3. Effacement of the suprasellar cisterns and right cerebral sulci as compared to the prior exam. 4. This would indicate developing pressure upon the brainstem. ACT 112: Negative or not required by law. The above report was generated using voice recognition software. It may contain grammatical, syntax or spelling errors. Electronically signed by: Flo Roche M.D. 04/20/2020 9:51 AM Dictated: 04/20/20947 Transcribed: 04/20/20947 XR chest 1V portable CLINICAL HISTORY: SEPSIS dyspnea COMPARISON STUDY: 02/15/2020 FINDINGS: Parenchymal infiltrate right midlung. Focal atelectasis left base with a trace left pleural effusion. No evidence for pneumothorax. IMPRESSION: 1. Parenchymal infiltrate right midlung. 2. Minimal infiltrate/atelectatic changes left base with a trace amount of left pleural fluid. ACT 112: Negative or not required by law. The above report was generated using voice recognition software. It may contain grammatical, syntax or spelling errors. Electronically signed by: Flo Roche M.D. 04/20/2020 9:29 AM Dictated: 04/20/20927 Transcribed: 04/20/20927 CT abd pelvis IV con only CT DOSE: 875.87 mGycm HISTORY: Pain. Nausea. altered TECHNIQUE: Multiaxial CT images of the abdomen and pelvis were performed following the use of intravenous contrast. A dose lowering technique was utilized adhering to the principles of ALARA. COMPARISON STUDY: None. FINDINGS: Lung bases show mild bibasilar interstitial change. There is a trace amount of pleural thickening at both lung bases. Mild fatty replacement of the liver. The kidneys enhance uniformly. No evidence for hydronephrosis. Large bowel containing periumbilical hernia. Right Midline additional hernia again containing a loop of bowel. No evidence for bowel incarceration or obstructive change. Mild rectal fecal impaction. Chronic sigmoid diverticulosis. Possible trace amount of superimposed acute diverticular change. No evidence for abscess or collection. IMPRESSION: 1. Bowel containing paraumbilical hernia considered nonobstructive. 2. Right anterior additional ventral wall hernia also containing fat as well as bowel. 3. All hernias are nonobstructive with no evidence for incarceration. 4. Bowel pattern overall is nonobstructive. 5. Chronic sigmoid diverticulosis with a trace amount of superimposed acute diverticular change. 6. No evidence for abscess collection or obstructive change. ACT 112: Negative or not required by law. The above report was generated using voice recognition software. It may contain grammatical, syntax or spelling errors. Electronically signed by: Flo Roche M.D. 04/20/2020 10:35 AM Dictated: 04/20/20 1031 Transcribed: 04/20/20 1031 Blood Pressure Blood Pressure Findings: Elevated blood pressure Blood Pressure Disposition: further management by hospitalist Discharge Plan Visit Data Chief Complaint: Unresponsive Stated Complaint: unresponsive/ [facility] ED Provider: Oli Crawford Discharge Problem: Glioblastoma, Acute intra-cranial hemorrhage, Cerebral edema, Pneumonia, Hypoxia, Seizure Patient Disposition: Home - Self-Care Condition: Critical Forms Stand Alone Forms: [facility], Virtual Emergency Department, Important Visit Information Prescriptions Prescriptions: No Action ondansetron HCl 8 mg tablet 8 mg PO Q8H PRN (Reason: Nausea) RF: 0 prochlorperazine maleate 10 mg tablet 10 mg PO Q6H PRN (Reason: Nausea) RF: 0 sulfamethoxazole-trimethoprim 800-160 mg tablet 1 tab PO 3XWK RF: 0 loratadine 10 mg capsule 10 mg PO DAILY PRN (Reason: allergy symptoms) Qty: 30 RF: 0 multivitamin with minerals Capsule 1 cap PO DAILY Qty: 30 RF: 0 bismuth subsalicylate 262 mg/15 mL suspension 524 mg PO Q4H PRN (Reason: dyspepsia) Qty: 946 RF: 0 melatonin 3 mg tablet 3 mg PO HS Qty: 30 RF: 0 omeprazole 20 mg capsule,delayed release(DR/EC) 20 mg PO DAILY Qty: 30 RF: 2 hydrocodone-acetaminophen 5-325 mg tablet 1 tab PO Q6H PRN (Reason: pain) Qty: 30 RF: 0 alendronate 70 mg tablet 70 mg PO WK RF: 0 Calcium 600 + D(3) 600 mg calcium- 200 unit Capsule 1 cap PO QAM RF: 0 docusate sodium 100 mg Capsule 100 mg PO BID RF: 0 acetaminophen 325 mg tablet 650 mg PO Q4H PRN (Reason: Fever Or Pain) RF: 0 lisinopril 10 mg tablet 10 mg PO QAM RF: 0 sertraline 50 mg tablet 50 mg PO QAM RF: 0 cholecalciferol (vitamin D3) 25 mcg (1,000 unit) tablet 25 mcg PO QAM RF: 0 Referrals Referrals: Thuy Nunes [Primary Care Provider] - Discharge Problem: Pneumonia Qualifiers: Pneumonia type: due to unspecified organism Laterality: right Lung location: lower lobe of lung Qualified Code(s): J18.9 - Pneumonia, unspecified organism
[2020-04-20 08:12] LABS: Appearance Urine Clear (Clear); Bacteria Urine Automated 1+ (Negative); Bilirubin Urine Negative (Negative); Blood Urine Negative (Negative); Color Urine Yellow; Glucose Urine UA Negative (Negative); Ketones Urine Negative (Negative); Leukocyte Esterase Urine Trace (Negative); Nitrite Urine Negative (Negative); Protein Urine Negative (Negative); RBC Urine Automated 0-4 /hpf (0-4); Specific Gravity Urine 1.011 (1.000-1.030); Urobilinogen Urine Negative (Negative)
[2020-04-20 08:17] LABS: Partial Thromboplastin Ratio 1.2; Prothrombin Time 10.8 Seconds (9.0-12.0)
[2020-04-20 08:23] LABS: Alanine Aminotransferase 21 U/L (12-78); Albumin Level 3.1 gm/dl (3.4-5.0); Aspartate Aminotransferase 15 U/L (15-37); BUN Creatinine Ratio 23.1 (10-20); Blood Urea Nitrogen 14 mg/dl (7-18); Calcium 9.3 mg/dl (8.5-10.1); Carbon Dioxide 29 mmol/L (21-32); Chloride 92 mmol/L (98-107); Est GFR (African American) 108.4; Est GFR (Non-African American) 93.5; Glucose 160 mg/dl (70-99); Magnesium 2.1 mg/dl (1.8-2.4); Potassium 3.7 mmol/L (3.5-5.1); Sodium 130 mmol/L (136-145)
[2020-04-20 08:27] LABS: Albumin Globulin Ratio 0.7 (0.9-2); Alkaline Phosphatase 114 U/L (45-117); Bilirubin,Total 0.5 mg/dl (0.2-1); Globulin 4.2 gm/dl (2.5-4.0); Total Protein 7.3 gm/dl (6.4-8.2); Troponin I < 0.015 ng/ml (0-0.045)
[2020-04-20 08:34] LABS: Basophils # (auto) 0.02 K/uL (0-0.2); Basophils % (auto) 0.1 %; Immature Granulocytes # (auto) 0.07 K/uL (0.00-0.02); Immature Granulocytes % (auto) 0.3 %; Lymphocytes # (auto) 0.89 K/uL (1.2-3.4); Monocytes # (auto) 0.54 K/uL (0.11-0.59); Monocytes % (auto) 2.4 %; Neutrophils # (auto) 20.67 K/uL (1.4-6.5); Neutrophils % (auto) 93.2 %
--- NOTE | 2020-04-20 09:31 | XRay Report ---
XR chest 1V portable CLINICAL HISTORY: SEPSIS dyspnea COMPARISON STUDY: 02/15/2020 FINDINGS: Parenchymal infiltrate right midlung. Focal atelectasis left base with a trace left pleural effusion. No evidence for pneumothorax. IMPRESSION: 1. Parenchymal infiltrate right midlung. 2. Minimal infiltrate/atelectatic changes left base with a trace amount of left pleural fluid. ACT 112: Negative or not required by law. The above report was generated using voice recognition software. It may contain grammatical, syntax or spelling errors. Electronically signed by: Flo Roche M.D. 04/20/2020 9:29 AM
--- NOTE | 2020-04-20 09:53 | CT Scan Report ---
CT head/brain wo con CT DOSE: 638.56 mGycm HISTORY: Mental status change altered TECHNIQUE: Multiaxial CT images of the head were performed without the use of intravenous contrast. A dose lowering technique was utilized adhering to the principles of ALARA. Comparison: None. Findings: The paranasal sinuses and mastoid air cells are clear. Interval development of a diffuse pa renchymal infiltrate right frontal parietal lobe. Progressive vasogenic edema compared to the prior s tudy. Considerable midline shift to the left with complete effacement of the right lateral ventricular syst em. Midline shift to the left is estimated at 1 cm. Partial effacement of the suprasellar cisterns. Impression: 1. Large geographic hemorrhage and/or parenchymal bleed right cerebral hemisphere, superimposed upon pre-existing vasogenic edema. 2. The vasogenic edema is also progressive with a midline shift to the left of 1 cm. 3. Effacement of the suprasellar cisterns and right cerebral sulci as compared to the prior exam. 4. This would indicate developing pressure upon the brainstem. ACT 112: Negative or not required by law. The above report was generated using voice recognition software. It may contain grammatical, syntax or spelling errors. Electronically signed by: Flo Roche M.D. 04/20/2020 9:51 AM
[2020-04-20] MEDS ORDERED: VANCOMYCIN CONSULT ACTIVE PRN (10:18)
[2020-04-20] MEDS ORDERED: DEXAMETHASONE SOD INJ 4 MG/ML VIAL IV STA (10:18)
[2020-04-20] MEDS ORDERED: PIPERACILLIN/TAZOBACTAM 4.5 GM/120 ML BAG IV ONE (10:18)
[2020-04-20] MEDS ORDERED: LABETALOL HCL IV 5 MG/ML 20ML IV STA (10:18)
[2020-04-20] MEDS ORDERED: PIPERACILL/TAZOBAC CONSULT ACTIVE PRN (10:18)
[2020-04-20] MEDS ORDERED: VANCOMYCIN HCL 1,500 MG in SODIUM CHLORIDE 0.9% 500 ML IV ONE (10:18)
--- NOTE | 2020-04-20 10:36 | CT Scan Report ---
CT abd pelvis IV con only CT DOSE: 875.87 mGycm HISTORY: Pain. Nausea. altered TECHNIQUE: Multiaxial CT images of the abdomen and pelvis were performed following the use of intrave nous contrast. A dose lowering technique was utilized adhering to the principles of ALARA. COMPARISON STUDY: None. FINDINGS: Lung bases show mild bibasilar interstitial change. There is a trace amount of pleural thic kening at both lung bases. Mild fatty replacement of the liver. The kidneys enhance uniformly. No evidence for hydronephrosis. Large bowel containing periumbilical hernia. Right Midline additional hernia again containing a loop of bowel. No evidence for bowel incarceration or obstructive change. Mild rectal fecal impaction. Chronic sigmoid diverticulosis. Possible trace amount of superimposed acute diverticular change. No evidence for abscess or collection. IMPRESSION: 1. Bowel containing paraumbilical hernia considered nonobstructive. 2. Right anterior additional ventral wall hernia also containing fat as well as bowel. 3. All hernias are nonobstructive with no evidence for incarceration. 4. Bowel pattern overall is nonobstructive. 5. Chronic sigmoid diverticulosis with a trace amount of superimposed acute diverticular change. 6. No evidence for abscess collection or obstructive change. ACT 112: Negative or not required by law. The above report was generated using voice recognition software. It may contain grammatical, syntax or spelling errors. Electronically signed by: Flo Roche M.D. 04/20/2020 10:35 AM
--- NOTE | 2020-04-20 11:44 | History & Physical Report ---
Date of Service April 20, 2020 Assessment & Plan (1) Acute intra-cranial hemorrhage: This patient is a 69-year-old unfortunate female with a history of WHO grade 4 glioblastoma of the right frontoparietal lobe s/p resection in 02/2020 with left hemiparesis, breast CA, depression, insomnia, HTN, and osteoporosis, who presents from the long-term at [facility] with reports of altered mental status with fever, vomiting, cough, and was unresponsive here. In the ER, she was noted to be rigid throughout, have a left gaze preference, she was unresponsive, had a low-grade temperature of 37.8, and was very hypertensive. She was found on head CT to have a large geographic hemorrhage and/or p arenchymal bleed in the right cerebral hemisphere superimposed upon pre-existing vasogenic edema with midline shift to the left of 1 cm, effacement of the suprasellar cisterns and right cerebral sulci indicating developing pressure upon the brainstem. She was also found on chest x-ray to have a pneumonia in the right mid lung and left base. She then developed seizure activity in the ER with involuntary movements of the jaw and mouth and hands as per nurses. When I saw the patient, she was unresponsive to loud verbal stimulus or sternal rub and did not withdraw to pain. She had intermittent seizure activity, and Carroll-Cherry breathing. -She was given IV Zosyn and vancomycin for the pneumonia, IV Decadron for the vasogenic edema, and given a loading dose of IV Keppra for seizures. -Both the ER physician and later myself, spoke with her power of environmental attorney,Salma Glass [phone], on the phone. He told me that she would not want any aggressive resuscitation or intubation, she would not want further neurosurgical intervention, and after discussion of her grave condition, requested that she be made comfort measures only. -Admit to medical/surgical floor for intracranial hemorrhage, unresponsiveness, comfort measures only -We will give morphine as needed for pain or breathlessness, Ativan as needed for agitation or seizures, atropine drops as needed for excessive secretions -No lab draws or needle sticks otherwise -She has no spouse, no children or family. Her power of environmental attorney is a friend of her parents' named Salma Glass who is aware of the situation. He can be reached through his 's cell phone at [phone]. He can also be reached on Tuesday through Tuesday mornings at his office at [phone]. He states that he is aware he can come to visit if he would like to, but he declines to do so at this time. (2) Comfort measures only status: As above (3) Pneumonia: Likely aspiration pneumonia No need to treat at this point as will not change her outcome as discussed with her POA -Discontinue all antibiotics started in the ER -Supplemental O2 for comfort (4) Hypoxia: Secondary to intracranial hemorrhage, pneumonia Supplemental O2 as needed for comfort Morphine as needed for breathlessness (5) Seizure: Secondary to intracranial hemorrhage with ensuing brainstem herniation Was given IV Keppra in the ER -Will give IV Ativan as needed (6) Glioblastoma: History of recent diagnosis of WHO grade 4 glioblastoma, status post resection in 02/2020 at [facility] in [place] With plans for radiation chemotherapy-review of record shows that she had simulation for radiation about a week ago, but not clear if she ever started treatment -Now with devastating intracranial hemorrhage with midline shift and ensuing brainstem herniation, transition to comfort measures only as above (7) Depression with anxiety: Will not give home medication (8) Unspecified essential hypertension: Had significantly elevated blood pressures in the ER secondary to cranial hemorrhage Was given IV labetalol -will treat with comfort medications as above (9) Osteoporosis, unspecified: No need for home medications Disposition-admit to medical/surgical floor for intracranial hemorrhage, comfort measures only DNR/DNI History of Present Illness Chief Complaint: Unresponsive Primary Care Provider: [facility] This patient is a 69-year-old unfortunate female with a history of WHO grade 4 glioblastoma of the right frontoparietal lobe s/p resection in 02/2020 with left hemiparesis, breast CA, depression, insomnia, HTN, and osteoporosis, who presents from the long-term at [facility] with reports of altered mental status with fever, vomiting, cough, and was unresponsive here. In the ER, she was noted to be rigid throughout, have a left gaze preference, she was unresponsive, had a low-grade temperature of 37.8, and was very hypertensive. She was found on head CT to have a large geographic hemorrhage and/or parenchymal bleed in the right cerebral hemisphere superimposed upon pre- existing vasogenic edema with midline shift to the left of 1 cm, effacement of the suprasellar cisterns and right cerebral sulci indicating developing pressure upon the brainstem. She was also found on chest x-ray to have a pneumonia in the right mid lung and left base. She then developed seizure activity in the ER with involuntary movements of the jaw and mouth and hands as per nurses. When I saw the patient, she was unresponsive to loud verbal stimulus or sternal rub and did not withdraw to pain. She had intermittent seizure activity, and Carroll-Cherry breathing. -She was given IV Zosyn and vancomycin for the pneumonia, IV Decadron for the vasogenic edema, and given a loading dose of IV Keppra for seizures. -Both the ER physician and later myself, spoke with her power of environmental attorney,Salma Glass [phone], on the phone. He told me that she would not want any aggressive resuscitation or intubation, she would not want further neurosurgical intervention, and after discussion of her grave condition, requested that she be made comfort measures only. Allergies Allergy/AdvReac Type Severity Reaction Status Date / Time No Known Allergies Allergy Unknown Verified 04/20/20 08:11 Home Medications Home Medications Medication Instructions Recorded Confirmed Type loratadine 10 mg capsule 10 mg PO DAILY PRN #30 cap 01/28/20 04/20/20 Rx multivitamin with minerals 1 cap PO DAILY #30 cap 01/28/20 04/20/20 Rx bismuth subsalicylate 262 mg/15 mL 524 mg PO Q4H PRN #946 ml 03/10/20 04/20/20 Rx oral suspension melatonin 3 mg tablet 3 mg PO HS #30 tab 03/10/20 04/20/20 Rx omeprazole 20 mg capsule,delayed 20 mg PO DAILY #30 cap 03/10/20 04/20/20 Rx release hydrocodone 5 mg-acetaminophen 325 1 tab PO Q6H PRN #30 tab 03/19/20 04/20/20 Rx mg tablet ondansetron HCl 8 mg tablet 8 mg PO Q8H PRN 03/20/20 04/20/20 History prochlorperazine maleate 10 mg 10 mg PO Q6H PRN 03/20/20 04/20/20 History tablet sulfamethoxazole 800 1 tab PO 3XWK 03/20/20 04/20/20 History mg-trimethoprim 160 mg tablet alendronate 70 mg PO WK 03/22/20 04/20/20 History calcium carbonate-vitamin D3 1 cap PO QAM 03/22/20 04/20/20 History [Calcium 600 + D(3)] acetaminophen 650 mg PO Q4H PRN 04/20/20 04/20/20 History cholecalciferol (vitamin D3) 25 mcg PO QAM 04/20/20 04/20/20 History docusate sodium 100 mg PO BID 04/20/20 04/20/20 History lisinopril 10 mg PO QAM 04/20/20 04/20/20 History sertraline 50 mg PO QAM 04/20/20 04/20/20 History Past Med/Surg History Medical History Carcinoma of upper-outer quadrant of right female breast (Resolved 06/14/13) "Status post right breast abnormal mammogram Status post biopsy revealing infiltrating ductal carcinoma Status post lumpectomy and sentinel lymph node biopsy 07/27/2013 Stage pT1c pN1 M0 Stage II A Oncotype DX score of 17 Status post completion of radiation therapy 10/29/2013 received 6180 cGy" Depression with anxiety (Chronic) Glioblastoma (Acute) Leiomyoma of uterus, unspecified (Inactive) Malignant neoplasm of upper outer quadrant of female breast (Acute) Osteoporosis, unspecified (Acute) Other specified intestinal obstruction (Inactive) Pneumonia, organism unspecified (Inactive) Surgical History History of appendectomy History of cholecystectomy History of total abdominal hysterectomy and bilateral salpingo-oophorectomy History of vaginal surgery Colpopexy abdominal approach Family History Father Congestive heart failure Mother Ovarian cancer Denies family history of Prostate cancer Myocardial infarction Breast cancer Colorectal cancer Social History Preferred Language: Turkish Beliefs That Will Affect Care: None marital status: Single Current Living Situation: Intermediate Feels Safe at Home: Yes Smoking Status: Never smoker Hx Alcohol Use: No Physical Activity Frequency: Daily Review of Systems Review of Systems: Unobtainable due to reduced consciousness Physical Exam Constitutional: + ill appearing, average body habitus and + lethargic; no acute distress Eyes: + eyes dysmorphic (With left gaze preference) and + anisocoria (Right pupil large and very minimally reactive to light, left pupil with moderate dilation and slightly more reactive to light) ENMT: Ears: no external ear abnormality Nose: no external nose abnormality Mouth: + oral mucosal abnormality (Dry) Neck: trachea midline, no thyromegaly Respiratory: + abnormal respiratory effort (With Carroll-Cherry breathing) Auscultation: + crackles (Bilateral) Cardiovascular: Rate/Rhythm: regular rhythm and + tachycardic Heart Sounds: no murmur Extremities: no edema Chest (Breasts): Chest: normal inspection of chest Gastrointestinal (Abdomen): normal bowel sounds, soft, nontender, no hepatosplenomegaly Musculoskeletal: Extremities: extremities normal to inspection; no cyanosis and no clubbing Skin: no rashes, warm and dry Neurologic: + obtunded; + does not move all extremities (Does not move spontaneously or in response to pain) All 4 limbs are extremely rigid and she is obtunded, not following commands Right pupil dilated minimally responsive to light as above, left pupil moderately dilated and more reactive to light With jaw intermittently with tremor and lip smacking Lymphatic: no lymphedema Results & Data Results & Data ([facility]) Vital Signs (Past 12 Hours) Vital Signs Temp Pulse Pulse Resp BP BP Pulse Ox 04/20/20 10:39 99 H 16 196/98 H 93 04/20/20 09:09 106 H 12 195/114 H 93 04/20/20 08:15 73 94 04/20/20 08:01 71 93 04/20/20 08:00 78 189/96 H 93 04/20/20 07:51 111 H 177/97 H 95 04/20/20 07:45 96 H 93 04/20/20 07:30 81 23 89 L 04/20/20 07:26 90 19 189/87 H 89 L 04/20/20 07:24 105 H 23 04/20/20 07:19 37.8 C H 101 H 24 189/87 H 92 Laboratory Results 04/20/20 04/20/20 04/20/20 Range/Units Unknown Unknown Unknown WBC (4.8-10.8) K/uL RBC (4.2-5.4) M/uL Hgb (12.0-16.0) g/dL Hct (37-47) % MCV (80-100) fL MCH (25-34) pg MCHC (32-36) g/dL RDW Std Deviation (36.4-46.3) fL RDW Coeff of Nicky (11.5-14.5) % Plt Count (130-400) K/uL MPV (7.4-10.4) fL Immature Gran % (Auto) % Neut % (Auto) % Lymph % (Auto) % [place] % (Auto) % Eos % (Auto) % Baso % (Auto) % Immature Gran # (Auto) (0.00-0.02) K/uL Neut # (Auto) (1.4-6.5) K/uL Lymph # (Auto) (1.2-3.4) K/uL [place] # (Auto) (0.11-0.59) K/uL Eos # (Auto) (0-0.5) K/uL Baso # (Auto) (0-0.2) K/uL PT 10.8 (9.0-12.0) Seconds INR 1.0 (0.9-1.1) APTT 34.0 H (21.0-31.0) Seconds PTT Ratio 1.2 VBG pH (7.36-7.41) VBG pCO2 (38-50) mmHg VBG pO2 mmHg VBG HCO3 mmol/L VBG O2 Saturation % VBG Base Excess mEq/L Barometric Pressure mm/Hg Sodium 130 L (136-145) mmol/L Potassium 3.7 (3.5-5.1) mmol/L Chloride 92 L (98-107) mmol/L Carbon Dioxide 29 (21-32) mmol/L Anion Gap 9.0 (3-11) BUN 14 (7-18) mg/dl Creatinine 0.59 L (0.6-1.2) mg/dl Est Cr Clr Drug Dosing Not Reportable Est GFR ( Amer) 108.4 Est GFR (Non-Af Amer) 93.5 BUN/Creatinine Ratio 23.1 H (10-20) Glucose 160 H (70-99) mg/dl Lactate (0.4-2.0) mmol/L Calcium 9.3 (8.5-10.1) mg/dl Magnesium 2.1 (1.8-2.4) mg/dl Total Bilirubin 0.5 (0.2-1) mg/dl AST 15 (15-37) U/L ALT 21 (12-78) U/L Alkaline Phosphatase 114 (45-117) U/L Troponin I < 0.015 (0-0.045) ng/ml Total Protein 7.3 (6.4-8.2) gm/dl Albumin 3.1 L (3.4-5.0) gm/dl Globulin 4.2 H (2.5-4.0) gm/dl Albumin/Globulin Ratio 0.7 L (0.9-2) Procalcitonin 0.07 (0-0.5) ng/ml Urine Color Urine Appearance (Clear) Urine pH (4.5-7.5) Ur Specific [place] (1.000-1.030) Urine Protein (Negative) Urine Glucose (UA) (Negative) Urine Ketones (Negative) Urine Blood (Negative) Urine Nitrite (Negative) Urine Bilirubin (Negative) Urine Urobilinogen (Negative) Ur Leukocyte Esterase (Negative) Urine WBC (Auto) (0-5) /hpf Urine RBC (Auto) (0-4) /hpf U Hyaline Cast (Auto) (0-5) /lpf U Epithel Cells (Auto) (0-5) /lpf Urine Bacteria (Auto) (Negative) COVID-19 PCR (Negative) 04/20/20 04/20/20 04/20/20 Range/Units Unknown 08:00 07:52 WBC 22.19 H (4.8-10.8) K/uL RBC 4.65 (4.2-5.4) M/uL Hgb 13.9 (12.0-16.0) g/dL Hct 41.5 (37-47) % MCV 89.2 (80-100) fL MCH 29.9 (25-34) pg MCHC 33.5 (32-36) g/dL RDW Std Deviation 47.1 H (36.4-46.3) fL RDW Coeff of Nicky 14.5 (11.5-14.5) % Plt Count 487 H (130-400) K/uL MPV 8.5 (7.4-10.4) fL Immature Gran % (Auto) 0.3 % Neut % (Auto) 93.2 % Lymph % (Auto) 4.0 % [place] % (Auto) 2.4 % Eos % (Auto) 0.0 % Baso % (Auto) 0.1 % Immature Gran # (Auto) 0.07 H (0.00-0.02) K/uL Neut # (Auto) 20.67 H (1.4-6.5) K/uL Lymph # (Auto) 0.89 L (1.2-3.4) K/uL [place] # (Auto) 0.54 (0.11-0.59) K/uL Eos # (Auto) 0.00 (0-0.5) K/uL Baso # (Auto) 0.02 (0-0.2) K/uL PT (9.0-12.0) Seconds INR (0.9-1.1) APTT (21.0-31.0) Seconds PTT Ratio VBG pH 7.49 H (7.36-7.41) VBG pCO2 38 (38-50) mmHg VBG pO2 57 mmHg VBG HCO3 29 mmol/L VBG O2 Saturation 91.4 % VBG Base Excess 5.3 mEq/L Barometric Pressure 732.7 mm/Hg Sodium (136-145) mmol/L Potassium (3.5-5.1) mmol/L Chloride (98-107) mmol/L Carbon Dioxide (21-32) mmol/L Anion Gap (3-11) BUN (7-18) mg/dl Creatinine (0.6-1.2) mg/dl Est Cr Clr Drug Dosing Est GFR ( Amer) Est GFR (Non-Af Amer) BUN/Creatinine Ratio (10-20) Glucose (70-99) mg/dl Lactate 2.6 H* (0.4-2.0) mmol/L Calcium (8.5-10.1) mg/dl Magnesium (1.8-2.4) mg/dl Total Bilirubin (0.2-1) mg/dl AST (15-37) U/L ALT (12-78) U/L Alkaline Phosphatase (45-117) U/L Troponin I (0-0.045) ng/ml Total Protein (6.4-8.2) gm/dl Albumin (3.4-5.0) gm/dl Globulin (2.5-4.0) gm/dl Albumin/Globulin Ratio (0.9-2) Procalcitonin (0-0.5) ng/ml Urine Color Urine Appearance (Clear) Urine pH (4.5-7.5) Ur Specific [place] (1.000-1.030) Urine Protein (Negative) Urine Glucose (UA) (Negative) Urine Ketones (Negative) Urine Blood (Negative) Urine Nitrite (Negative) Urine Bilirubin (Negative) Urine Urobilinogen (Negative) Ur Leukocyte Esterase (Negative) Urine WBC (Auto) (0-5) /hpf Urine RBC (Auto) (0-4) /hpf U Hyaline Cast (Auto) (0-5) /lpf U Epithel Cells (Auto) (0-5) /lpf Urine Bacteria (Auto) (Negative) COVID-19 PCR (Negative) 04/20/20 04/20/20 Range/Units 07:35 07:25 WBC (4.8-10.8) K/uL RBC (4.2-5.4) M/uL Hgb (12.0-16.0) g/dL Hct (37-47) % MCV (80-100) fL MCH (25-34) pg MCHC (32-36) g/dL RDW Std Deviation (36.4-46.3) fL RDW Coeff of Nicky (11.5-14.5) % Plt Count (130-400) K/uL MPV (7.4-10.4) fL Immature Gran % (Auto) % Neut % (Auto) % Lymph % (Auto) % [place] % (Auto) % Eos % (Auto) % Baso % (Auto) % Immature Gran # (Auto) (0.00-0.02) K/uL Neut # (Auto) (1.4-6.5) K/uL Lymph # (Auto) (1.2-3.4) K/uL [place] # (Auto) (0.11-0.59) K/uL Eos # (Auto) (0-0.5) K/uL Baso # (Auto) (0-0.2) K/uL PT (9.0-12.0) Seconds INR (0.9-1.1) APTT (21.0-31.0) Seconds PTT Ratio VBG pH (7.36-7.41) VBG pCO2 (38-50) mmHg VBG pO2 mmHg VBG HCO3 mmol/L VBG O2 Saturation % VBG Base Excess mEq/L Barometric Pressure mm/Hg Sodium (136-145) mmol/L Potassium (3.5-5.1) mmol/L Chloride (98-107) mmol/L Carbon Dioxide (21-32) mmol/L Anion Gap (3-11) BUN (7-18) mg/dl Creatinine (0.6-1.2) mg/dl Est Cr Clr Drug Dosing Est GFR ( Amer) Est GFR (Non-Af Amer) BUN/Creatinine Ratio (10-20) Glucose (70-99) mg/dl Lactate (0.4-2.0) mmol/L Calcium (8.5-10.1) mg/dl Magnesium (1.8-2.4) mg/dl Total Bilirubin (0.2-1) mg/dl AST (15-37) U/L ALT (12-78) U/L Alkaline Phosphatase (45-117) U/L Troponin I (0-0.045) ng/ml Total Protein (6.4-8.2) gm/dl Albumin (3.4-5.0) gm/dl Globulin (2.5-4.0) gm/dl Albumin/Globulin Ratio (0.9-2) Procalcitonin (0-0.5) ng/ml Urine Color Yellow Urine Appearance Clear (Clear) Urine pH 7.0 (4.5-7.5) Ur Specific [place] 1.011 (1.000-1.030) Urine Protein Negative (Negative) Urine Glucose (UA) Negative (Negative) Urine Ketones Negative (Negative) Urine Blood Negative (Negative) Urine Nitrite Negative (Negative) Urine Bilirubin Negative (Negative) Urine Urobilinogen Negative (Negative) Ur Leukocyte Esterase Trace H (Negative) Urine WBC (Auto) 5-10 H (0-5) /hpf Urine RBC (Auto) 0-4 (0-4) /hpf U Hyaline Cast (Auto) 1-5 (0-5) /lpf U Epithel Cells (Auto) 5-10 H (0-5) /lpf Urine Bacteria (Auto) 1+ H (Negative) COVID-19 PCR NEGATIVE (Negative) Diagnostic Findings CT of the head image personally reviewed by me and agree with the following report: CT head/brain wo con CT DOSE: 638.56 mGycm HISTORY: Mental status change altered TECHNIQUE: Multiaxial CT images of the head were performed without the use of intravenous contrast. A dose lowering technique was utilized adhering to the principles of ALARA. Comparison: None. Findings: The paranasal sinuses and mastoid air cells are clear. Interval devel opment of a diffuse parenchymal infiltrate right frontal parietal lobe. Progressive vasogenic edema compared to the prior study. Considerable midline shift to the left with complete effacement of the right lateral ventricular system. Midline shift to the left is estimated at 1 cm. Partial effacement of the suprasellar cisterns. Impression: 1. Large geographic hemorrhage and/or parenchymal bleed right cerebral hemisphere, superimposed upon pre-existing vasogenic edema. 2. The vasogenic edema is also progressive with a midline shift to the left of 1 cm. 3. Effacement of the suprasellar cisterns and right cerebral sulci as compared to the prior exam. 4. This would indicate developing pressure upon the brainstem. XR chest 1V portable CLINICAL HISTORY: SEPSIS dyspnea COMPARISON STUDY: 02/15/2020 FINDINGS: Parenchymal infiltrate right midlung. Focal atelectasis left base with a trace left pleural effusion. No evidence for pneumothorax. IMPRESSION: 1. Parenchymal infiltrate right midlung. 2. Minimal infiltrate/atelectatic changes left base with a trace amount of left pleural fluid. CT abdomen/pelvis: IMPRESSION: 1. Bowel containing paraumbilical hernia considered nonobstructive. 2. Right anterior additional ventral wall hernia also containing fat as well as bowel. 3. All hernias are nonobstructive with no evidence for incarceration. 4. Bowel pattern overall is nonobstructive. 5. Chronic sigmoid diverticulosis with a trace amount of superimposed acute diverticular change. 6. No evidence for abscess collection or obstructive change. ECG Additional Comments: ECG with sinus tachycardia, rate 106, nonspecific ST and T wave abnormality Code Status & VTE Plan VTE Prophylaxis Plan VTE Prophylaxis will be ordered: No Reason for no VTE mechanical prophylaxis: Treatment not indicated (On comfort measures only) PG Care Time/CCT Total # of Minutes Spent Total Time Spent with Patient: Total time spent is greater than 50% in coordination of care (as documented) at patient's floor/unit and/or counseling patient: Coding Level of Care Code 41573 Initial Inpt Care Lvl 3 Diagnoses Acute intra-cranial hemorrhage I62.9 Comfort measures only status Z51.5 Pneumonia J18.9 Laterality: right Lung location: lower lobe of lung Pneumonia type: due to unspecified organism Hypoxia R09.02 Seizure R56.9 Glioblastoma C71.9 Depression with anxiety F41.8 Unspecified essential hypertension I10 Osteoporosis, unspecified M81.0 (1) Pneumonia Laterality: right Lung location: lower lobe of lung Pneumonia type: due to unspecified organism Qualified Code(s): J18.9 - Pneumonia, unspecified organism
[2020-04-20] MEDS ORDERED: ATROPINE SULFATE 1% OP SOLN 2 ML BTL PO PRN (14:18)
[2020-04-20] MEDS ORDERED: MoRPHine SULFATE 2 MG/ML CARP IV PRN (14:18)
[2020-04-20] MEDS ORDERED: ONDANSETRON INJ 2 MG/ML 2 ML VIAL IV PRN (14:18)
[2020-04-20] MEDS ORDERED: LORazepam 1 MG/2 ML VIAL IV PRN (14:18)
[2020-04-21 03:41] VITALS: BP 155/76; PULSE 86; TEMP 98.1; O2SAT 96
--- NOTE | 2020-04-21 05:49 | Electrocardiogram Report ---
Test Reason : Blood Pressure : / mmHG Vent. Rate : 106 BPM Atrial Rate : 106 BPM P-R Int : 122 ms QRS Dur : 074 ms QT Int : 354 ms P-R-T Axes : 043 -20 063 degrees QTc Int : 470 ms Poor data quality, interpretation may be adversely affected Sinus tachycardia Possible Left atrial enlargement Nonspecific ST and T wave abnormality Abnormal ECG When compared with ECG of 15-FEB-2020 15:18, Premature ventricular complexes are no longer Present Criteria for Anteroseptal infarct are no longer Present Confirmed by Link Slade ([id number]) on 04/21/2020 5:48:45 AM Referred By: [facility] Confirmed By:Link Slade
--- NOTE | 2020-04-21 08:31 | Hospitalist Progress Note ---
Date of Service April 21, 2020 Assessment & Plan Admission and Anticipated Discharge Date Admission Date: April 20, 2020 Results & Data Results & Data ([facility]) Vital Signs (Past 12 Hours) Vital Signs Temp Pulse Resp BP Pulse Ox 04/20/20 23:32 36.7 C 86 19 155/76 H 96 04/20/20 21:49 36.5 C 65 20 121/65 97
--- NOTE | 2020-04-21 13:06 | Discharge Summary ---
Date of Service April 21, 2020 Admission HPI Per Admitting Provider This patient is a 69-year-old unfortunate female with a history of WHO grade 4 glioblastoma of the right frontoparietal lobe s/p resection in 02/2020 with left hemiparesis, breast CA, depression, insomnia, HTN, and osteoporosis, who presents from the [facility] at [facility] with reports of altered mental status with fever, vomiting, cough, and was unresponsive here. In the ER, she was noted to be rigid throughout, have a left gaze preference, she was unresponsive, had a low-grade temperature of 37.8, and was very hypertensive. She was found on head CT to have a large geographic hemorrhage and/or parenchymal bleed in the right cerebral hemisphere superimposed upon pre- existing vasogenic edema with midline shift to the left of 1 cm, effacement of the suprasellar cisterns and right cerebral sulci indicating developing pressure upon the brainstem. She was also found on chest x-ray to have a pneumonia in the right mid lung and left base. She then developed seizure activity in the ER with involuntary movements of the jaw and mouth and hands as per nurses. When I saw the patient, she was unresponsive to loud verbal stimulus or sternal rub and did not withdraw to pain. She had intermittent seizure activity, and Carroll-Cherry breathing. -She was given IV Zosyn and vancomycin for the pneumonia, IV Decadron for the vasogenic edema, and given a loading dose of IV Keppra for seizures. -Both the ER physician and later myself, spoke with her power of horticultural farmworker,Salma Glass [phone], on the phone. He told me that she would not want any aggressive resuscitation or intubation, she would not want further neurosurgical intervention, and after discussion of her grave condition, requested that she be made comfort measures only. Admission Exam Per Admitting Provider Constitutional: + ill appearing, average body habitus and + lethargic; no acute distress Eyes: + eyes dysmorphic (With left gaze preference) and + anisocoria (Right pupil large and very minimally reactive to light, left pupil with moderate dilation and slightly more reactive to light) ENMT: Ears: no external ear abnormality Nose: no external nose abnormality Mouth: + oral mucosal abnormality (Dry) Neck: trachea midline, no thyromegaly Respiratory: + abnormal respiratory effort (With Carroll-Cherry breathing) Auscultation: + crackles (Bilateral) Cardiovascular: Rate/Rhythm: regular rhythm and + tachycardic Heart Sounds: no murmur Extremities: no edema Chest (Breasts): Chest: normal inspection of chest Gastrointestinal (Abdomen): normal bowel sounds, soft, nontender, no hepatosplenomegaly Musculoskeletal: Extremities: extremities normal to inspection; no cyanosis and no clubbing Skin: no rashes, warm and dry Neurologic: + obtunded; + does not move all extremities (Does not move spontaneously or in response to pain) All 4 limbs are extremely rigid and she is obtunded, not following commands Right pupil dilated minimally responsive to light as above, left pupil moderately dilated and more reactive to light With jaw intermittently with tremor and lip smacking Lymphatic: no lymphedema Principal Diagnosis intracranial hemorrhage Discharge Exam Constitutional + altered mental status, comfortable and + lethargic; + uncooperative nonresponsive to commands, retracts from pain, otherwise laying still in bed. Eyes pupils fixed, dilated and nonreactive to light bilaterally Respiratory symmetric chest movement; no respiratory distress, no labored breathing and no cough Auscultation: + rhonchi; no rales and no wheezes Cardiovascular RRR, no murmur, no edema Discharge Data Allergies Allergy/AdvReac Type Severity Reaction Status Date / Time No Known Allergies Allergy Unknown Verified 04/20/20 08:11 Consultations 04/20/20 10:41 ED Decision to Admit Stat Ordered Studies 04/20/20 07:29 CT abd pelvis IV con only Stat CT head/brain wo con Stat Hospital Course (1) Acute intra-cranial hemorrhage: Ms. Veronica was seen in the hospital for new onset altered mental status and trouble breathing found to be secondary to a devastating intracranial hemorrhage and midline shift with cerebral edema. The decision was made with power of horticultural farmworker to make her DNR/DNI and comfort measures only. CT Head: 1. Large geographic hemorrhage and/or parenchymal bleed right cerebral hemisphere, superimposed upon pre-existing vasogenic edema. 2. The vasogenic edema is also progressive with a midline shift to the left of 1 cm. 3. Effacement of the suprasellar cisterns and right cerebral sulci as compared to the prior exam. 4. This would indicate developing pressure upon the brainstem. During her stay she received a loading dose of keppra to help reduce the seizures that occurred secondary to her hemorrhage, as well as dexamethasone to help alleviate some of the cerebral edema. Given the degree of her obtunded mental status, and lack of respiratory difficulty, the decision was made to withdraw antibiotic treatment of the pneumonia as it would not benefit her comfort at this time. Comfort care plan: - morphine 2 mg drops Q1H PRN for pain, air hunger - ativan 2 mg drops for seizure activity - atropine 4 drops every hour for secretions (2) Cerebral edema: (3) Pneumonia: (4) Comfort measures only status: Total Time Total Time Spent Total Time Spent (In Minutes): <30 Discharge Plan Discharge Items Patient Disposition: Hospice - Medical Facility Reason For Visit: INTRACRANIAL HEMORRHAGE, GLIOBLASTOMA Discharge Diagnosis: intracranial hemorrhage Condition on Discharge: Serious Activity: Per Instructions section Non-emergency contact: Primary Care Provider Call non-emergency contact if: you have any medication questions Follow-up/Referrals: Thuy Nunes [Primary Care Provider] - Diet: Regular Addtl Attending Provider Instructions: Ms. Veronica was seen in the hospital for new onset altered mental status and trouble breathing found to be secondary to a devastating intracranial hemorrhage and midline shift with cerebral edema. The decision was made with power of horticultural farmworker to make her DNR/DNI and comfort measures only. Comfort care plan: - morphine 2 mg drops Q1H PRN for pain, air hunger - ativan 2 mg drops for seizure activity - atropine 4 drops every hour for secretions Pending Studies at Discharge: No Stand-Alone Forms: [facility] [employer], Smoking Cessation Skilled Items Patient informed of condition?: Yes DNR: Yes Discharge Level of Care: Skilled Communicable Disease: No Discharge Prognosis: Stable Lines: None Urinary Catheter: No Medications and DC Order Prescriptions: New atropine 1 % Drops 4 drp PO Q4 PRN (Reason: secretions) 30 Days Qty: 30 RF: 0 lorazepam [Ativan] 4 mg/mL solution 2 mg BUCCAL DAILY PRN (Reason: seizure activity) Qty: 10 RF: 0 morphine 10 mg/5 mL solution 5 mg PO Q1H PRN (Reason: dyspnea) Qty: 100 RF: 0 Discontinued ondansetron HCl 8 mg tablet 8 mg PO Q8H PRN (Reason: Nausea) RF: 0 prochlorperazine maleate 10 mg tablet 10 mg PO Q6H PRN (Reason: Nausea) RF: 0 sulfamethoxazole-trimethoprim 800-160 mg tablet 1 tab PO 3XWK RF: 0 loratadine 10 mg capsule 10 mg PO DAILY PRN (Reason: allergy symptoms) Qty: 30 RF: 0 multivitamin with minerals Capsule 1 cap PO DAILY Qty: 30 RF: 0 bismuth subsalicylate 262 mg/15 mL suspension 524 mg PO Q4H PRN (Reason: dyspepsia) Qty: 946 RF: 0 melatonin 3 mg tablet 3 mg PO HS Qty: 30 RF: 0 omeprazole 20 mg capsule,delayed release(DR/EC) 20 mg PO DAILY Qty: 30 RF: 2 hydrocodone-acetaminophen 5-325 mg tablet 1 tab PO Q6H PRN (Reason: pain) Qty: 30 RF: 0 alendronate 70 mg tablet 70 mg PO WK RF: 0 Calcium 600 + D(3) 600 mg calcium- 200 unit Capsule 1 cap PO QAM RF: 0 docusate sodium 100 mg Capsule 100 mg PO BID RF: 0 acetaminophen 325 mg tablet 650 mg PO Q4H PRN (Reason: Fever Or Pain) RF: 0 lisinopril 10 mg tablet 10 mg PO QAM RF: 0 sertraline 50 mg tablet 50 mg PO QAM RF: 0 cholecalciferol (vitamin D3) 25 mcg (1,000 unit) tablet 25 mcg PO QAM RF: 0 Discharge Orders: Discharge Order (Routine); Ordered 04/21/20 Ordered By: Melissa Victoria Admission Data Admit Date/Time: 04/20/20 11:43 Attending Provider: Zeb Suggs Admit Provider: Helena Burns Primary Care Provider: Thuy Nunes Other Providers: Helena Burns ; Melissa Victoria ; Thuy Nunes Other Interventions: Discharge Summary Assessment (RN) Last Done: 04/21/20 13:13 DC Date/Time DO NOT enter until pt leaves facility: 04/21/20 15:20 Supervising Physician Co-Signing Physician Notes I personally examined the patient and verified all peterson points of history and exam, discussed case, and agree with decision making with Dr Victoria. no HPI or ROS obtainable vitals noted nad breathing unlabored no accessory muscles good effort skin no rashes no pallor or icterus catastrophic ICH - in context of recent gliobastoma/surgery - for comfort measures only. stable for return to SNF for comfort care since needs appear to be easily met. Resident Activity Tracking Resident Involvement: Resident Care Provided Care Provided: [facility]
--- NOTE | 2020-04-21 16:40 | Billing Data ---
Date of Service April 21, 2020 Coding Level of Care Code D/C Day Management <30 mins
== END 2020-04-21 15:20 | disposition hospice, inpatient (51) | DRG 64 ==
LOC: ED 07:19 → 2N 11:43 → SUATTDRO 11:43 → 2N 13:46